=== PATIENT | male | born 1970 | race Caucasian/White ===

== ENCOUNTER → 2024-11-01 10:04 | Outpatient (REF) | payer BC, SELFPAY | LOC: HWRAD 10:04 | DX: Z72.0 Tobacco use (principal); R63.4 Abnormal weight loss | CPT/HCPCS: 71046 ==

== ENCOUNTER 2024-11-20 06:22 | Day surgery (SDC) | payer BC, SELFPAY | END 2024-11-20 15:03 | disposition home or self-care (01) | LOC: GI 06:22 | PROVIDERS: ATTENDING PHYSICIAN Specialist | DX: Z12.11 Encounter for screening for malignant neoplasm of colon (principal); D12.0 Benign neoplasm of cecum; D12.3 Benign neoplasm of transverse colon; D12.5 Benign neoplasm of sigmoid colon; K57.30 Diverticulosis of large intestine without perforation or abscess without bleeding; K62.1 Rectal polyp; K62.89 Other specified diseases of anus and rectum; K64.8 Other hemorrhoids; K22.89 Other specified disease of esophagus; R63.4 Abnormal weight loss; R68.81 Early satiety; K31.89 Other diseases of stomach and duodenum; K29.50 Unspecified chronic gastritis without bleeding; B96.81 Helicobacter pylori [H. pylori] as the cause of diseases classified elsewhere; Z87.19 Personal history of other diseases of the digestive system | CPT/HCPCS: 45385; 45380; 43239; 88305; 88342 ==

== ENCOUNTER → 2025-01-03 16:17 | Outpatient (REF) | payer BC, SELFPAY | LOC: RAD 16:17 | PROVIDERS: ATTENDING PHYSICIAN Specialist | DX: R63.4 Abnormal weight loss (principal); Z20.1 Contact with and (suspected) exposure to tuberculosis; A04.8 Other specified bacterial intestinal infections; R68.81 Early satiety | CPT/HCPCS: 71260; 74177; Q9967 ==